=== PATIENT | female | born 1955 | race Caucasian/White ===

== ENCOUNTER 2016-10-06 10:24 | Emergency (ER) | payer OTHER ==
[~2016-10-06] VITALS: Ht 165.1 cm; Wt 68.0 kg
[2016-10-06] MEDS ORDERED: SODIUM CHLORIDE 0.9% 10ML VIAL ONE (11:03)
[2016-10-06] MEDS ORDERED: IOHEXOL-300 100 ML BOTTLE ONE (11:03)
[2016-10-06] MEDS: SODIUM CHLORIDE 0.9% 1,000 ML IV ONE (11:10)
[2016-10-06 11:27] LABS: BASOPHILS % 0.1 % (0.0-2.0); EOSINOPHILS % 0.2 % (0.0-5.0); HEMATOCRIT. 29.5 % (36.0-48.0); HEMOGLOBIN. 9.7 g/dL (12.0-16.0); LYMPHOCYTES % 9.9 % (20.0-50.0); MEAN CORPUSCULAR VOLUME 85.4 fL (81.0-99.0); MEAN PLATELET VOLUME 8.6 fl (7.4-10.4); MONOCYTES % 5.5 % (2.0-8.0); NEUTROPHILS % 84.3 % (40.0-76.0); PLATELET 252 x1000/uL (130-400); RED BLOOD CELL COUNT 3.45 mill/uL (4.2-5.4); RED CELL DISTRIBUTION WIDTH 14.2 % (11.6-14.6)
[2016-10-06 11:36] LABS: INR 1.1; PARTIAL THROMBOPLASTIN TIME 24.8 sec (23.4-31.0); PROTHROMBIN TIME 11.2 sec (9.4-11.6)
[2016-10-06 11:38] LABS: CARBON DIOXIDE 23 mEq/L (21-32); CHLORIDE 106 mEq/L (98-107)
[2016-10-06 11:45] LABS: TROPONIN I 0.05 ng/mL (0.00-0.04)
[2016-10-06 13:33] LABS: CLARITY URINE CLOUDY (CLEAR); COLOR URINE DARK YELLOW (YELLOW); GLUCOSE URINE NEGATIVE (NEGATIVE); KETONES URINE 3+ (NEGATIVE); LEUKOCYTE ESTERASE URINE NEGATIVE (NEGATIVE); NITRITE URINE NEGATIVE (NEGATIVE); OCCULT BLOOD URINE TRACE (NEGATIVE); PH URINE 5.5 (4.5-8.0); PROTEIN URINE 1+ (NEGATIVE); SPECIFIC GRAVITY URINE 1.017 (1.005-1.030)
[2016-10-06 15:45] LABS: HEMATOCRIT 27.9 % (36.0-48.0); HEMOGLOBIN 9.1 g/dL (12.0-16.0)
[2016-10-06] MEDS: ONDANSETRON HCL 4MG/2ML VIAL IV ONE (16:00)
[2016-10-06] MEDS: MORPHINE SULFATE 4 MG/ML CPJ (NOT FOR IM USE) IV ONE (16:00)
[2016-10-06 18:00] VITALS: BP 128/74
== END 2016-10-06 18:10 | disposition short-term general hospital (02) ==
LOC: ER 10:24
DX: G89.18 Other acute postprocedural pain (principal); D64.9 Anemia, unspecified; R10.9 Unspecified abdominal pain; K66.1 Hemoperitoneum; R53.1 Weakness; R42 Dizziness and giddiness; I10 Essential (primary) hypertension
CPT/HCPCS: 36415; 71010; 74177; 80053; 81001; 83605; 83735; 83880; 84484; 85014; 85018; 85025; 85610; 85730; 86850; 86900; 86901; 87040; 93005; 96361; 96374; 96375; 99291; A4216; J2270; J2405; Q9967; Z7610; J7030